=== PATIENT | female | born 1975 | race Caucasian/White ===

== ENCOUNTER → 2018-09-26 | Outpatient (CLI) | payer OTHER ==
--- NOTE | 2018-09-26 13:31 | KCIC ---
Bilateral digital screening mammograms: Reason for examination: Routine baseline screening. Sebaceous cyst in the medial right breast at approximately. 3:00 position for 2 years. Interpretation was made with the benefit of CAD. The skin and nipples show no abnormalities. No abnormal axillary lymph nodes are seen. The breast parenchyma shows scattered fibroglandular density. (Breast density: Category B.) There is a small circumscribed lesion posterior medially in the right breast consistent with a sebaceous cyst. There are however clustered-like calcifications present in the left breast at the 12:00 B and 12:00 C positions. Further evaluation with coned magnification views is recommended. There is also some nodularity associated with the calcifications at the 12:00 B position and further evaluation with ultrasound is recommended. IMPRESSION: Clustered microcalcifications at the 12:00 B and 12:00 C positions of the left breast with some associated nodularity at the 12:00 B position. Recommend further evaluation with coned magnification views and left breast ultrasound. BI-RADS Category 0: Incomplete: Need additional imaging evaluation. "Our facility is accredited by the [employer] Mammography [employer]." This patient's information has been entered into a reminder system for the patient to be notified with the results of her examination and a target date for the next mammogram. Electronically signed by: Lorena Womack MD (09/26/2018 1:28 PM) [id number]
== END | disposition home or self-care (01) ==
LOC: KCIC MAMMO 12:17
PROVIDERS: ATTEND Family Medicine
DX: Z12.31 Encounter for screening mammogram for malignant neoplasm of breast (principal)
CPT/HCPCS: 77067

== ENCOUNTER → 2018-11-06 | Outpatient (CLI) | payer OTHER ==
--- NOTE | 2018-11-06 14:16 | KCIC ---
EXAM: Left breast diagnostic mammogram; left breast sonogram. HISTORY: 43-year-old female presents for evaluation of nodularity and microcalcifications within the left breast demonstrated on a mammogram dated 09/26/2018. TECHNIQUE: Spot magnification views of the left breast are obtained. Sonographic imaging of the left breast including all 4 quadrants and the retroareolar region was also performed. COMPARISON: 09/26/2018 BREAST PARENCHYMAL DENSITY: Level B - Scattered fibroglandular densities. FINDINGS: There is a persistent nodular density containing calcifications within the anterior 12:00 position of the left breast. This measures approximately 4.6 mm mammographically. There are clustered microcalcification within the left breast at the 2:00 position approximately 6.5 cm from the nipple. Several of these calcifications demonstrate round morphology. However, there are additional calcifications within this cluster which demonstrate slightly heterogeneous morphology. There are scattered and loosely grouped calcifications throughout the remainder of the left breast. Sonographic imaging of the left breast demonstrates a hypoechoic lesion with internal echoes possibly due to punctate calcifications at the 12:00 position 2.5 cm from the nipple measuring 4.6 mm. This likely corresponds with the mammographic nodular density described above. This lesion appears partially circumscribed. However, there are indistinct margins on portions of the lesion. There is a 5 mm suspected cyst or focally dilated duct at the 2:00 position 3 cm from the nipple. There are dilated ducts within the retroareolar left breast. IMPRESSION: 1. Clustered microcalcifications within the left breast at the 12:00 position approximately 6.5 cm from the nipple. There are few calcifications with indeterminate morphology within this cluster. Therefore, stereotactic guided biopsy is recommended for definitive diagnosis. 2. Small nodule within the 12:00 position of the left breast approximately 2.5 cm from the nipple. Sonographic guided biopsy is recommended for definitive diagnosis. 3. BI-RADS Category 4: Suspicious abnormality. Biopsy is recommended, as described above. These findings and recommendations were discussed with the patient and will be communicated to the referring physician office. If your mammogram demonstrates that you have dense breast tissue, which could hide abnormalities, and if you have other risk factors for breast cancer that have been identified, you might benefit from supplemental screening tests that may be suggested by your ordering physician. Dense breast tissue, in and of itself, is a relatively common condition. This information is not provided to cause undue concern, but rather to raise your awareness and to promote discussion with your physician regarding the presence of other risk factors, in addition to dense breast tissue. A report of your mammography results will be sent to you and your physician. You should contact your physician if you have any questions or concerns regarding this report. Mammography is a sensitive method for finding small breast cancers, but it does not detect them all and is not a substitute for careful clinical examination. A negative mammogram does not negate a clinically suspicious finding and should not result in delay in biopsying a clinically suspicious abnormality. PQRS compliance statement - Patient information was entered into a reminder system with a target due date for the next mammogram. "Our facility is accredited by the [employer] Mamm[employer]." Electronically signed by: Miguelina Godwin MD (11/06/2018 2:13 PM) [id number]
== END | disposition home or self-care (01) ==
LOC: KCIC MAMMO 12:47
PROVIDERS: ATTEND Family Medicine
DX: R92.1 Mammographic calcification found on diagnostic imaging of breast (principal)
CPT/HCPCS: 76641; 77065